=== PATIENT | male | born 1950 | race Hispanic/Latino ===

== ENCOUNTER → 2022-04-30 | Emergency (ER) | payer MEDICARE, MEDICAID ==
[~2022-04-30] MED LIST: QUEtiapine 100 MG TAB PO SCH
[2022-04-30 19:55] LABS: Bilirubin Neg (Negative); Blood, Urine Negative (Negative); Clarity Slightly Cloudy (Clear); Glucose, Urine (Dipstick) Normal (Negative); Ketone, Urine Negative (Negative); Leukocyte 100 (Negative); Nitrite Negative (Negative); Protein, Urine (Dipstick) Negative (Neg-Trace); Specific Gravity, Urine 1.015 (1.005-1.030); Urobilinogen Normal mg/dL (Less than 2)
[2022-04-30 20:03] LABS: Amphetamine Not Detected (NotDetected); Bacteria/HPF 1+ HPF (None Seen); Barbiturates Screen Not Detected (NotDetected); Benzodiazepine Screen Not Detected (NotDetected); Cocaine Metabolite Screen Not Detected (NotDetected); Methadone Not Detected (NotDetected); Methamphetamine Not Detected (NotDetected); Opiate Screen Not Detected (NotDetected); Oxycodone Screen Not Detected (NotDetected); Phencyclidine (PCP) Not Detected (NotDetected); RBC/HPF None Seen HPF (0-3); Squamous Epithelial None Seen HPF (0-3); THC/Cannabinoid Screen Not Detected (NotDetected); Tricyclic Screen Detected (NotDetected); WBC/HPF 0-3 HPF (0-3)
[2022-04-30 20:21] LABS: #Eosinphils 0.2 10x3/uL (0.0-0.5); #Monocytes 0.7 10x3/uL (0.0-1.1); #Neutrophils 3.5 10x3/uL (1.5-8.4); %Basophils 0.5 % (0.0-2.0); %Eosinophils 2.4 % (0.0-6.0); %Lymphocytes 29.1 % (18.0-47.0); %Monocytes 10.8 % (0.0-10.0); Hemoglobin 13.1 g/dL (13.5-17.5); Mean Corpuscular HGB CONC 34.5 g/dL (32.0-36.0); Mean Corpuscular Hemoglobin 30.6 pg (27.0-33.0); Mean Corpuscular Volume 88.8 fl (81.2-95.1); Mean Platelet Volume 8.9 fl (7.4-10.4); Platelet Count 313 10x3/uL (150-450); RBC Distribution Width 13.1 % (11.5-14.5); Red Blood Cell (RBC) Count 4.28 10x6/uL (4.32-5.72); White Blood Cell (WBC) Count 6.2 10x3/uL (3.5-10.5)
[2022-04-30 20:24] LABS: Acetaminophen Less than 10.0 mcg/mL (10.0-30.0); Alcohol Less than 10 mg/dL (Less than 10); CK (CPK) 75 U/L (30-200); Salicylate Less than 8.0 mg/dL (15.0-30.0)
[2022-04-30 20:26] LABS: ALT (SGPT) 11 U/L (8-55); AST (SGOT) 20 U/L (5-34); Albumin 4.2 g/dL (3.4-4.8); Alkaline Phosphatase 100 U/L (40-110); Anion Gap 15 mmol/L (10-20); BUN (Urea Nitrogen) 38 mg/dL (8.4-25.7); Bilirubin, Total 0.4 mg/dL (0.2-1.2); Calc. Creatinine Clearance 0 mL/min (70-130); Calcium 9.9 mg/dL (7.8-10.44); Carbon Dioxide 26 mmol/L (23-31); Chloride 110 mmol/L (98-107); Estimated GFR 91; Glucose 97 mg/dL (83-110); Potassium 5.4 mmol/L (3.5-5.1); Protein, Total 7.2 g/dL (5.8-8.1); Sodium 146 mmol/L (136-145)
[2022-05-01 08:21] LABS: SARS-CoV-2 NAA Rapid Test Not Detected (NotDetected)
== END ==
LOC: EDBD 19:03 → CSHERS 19:03
DX: F20.9 Schizophrenia, unspecified (principal); Z20.822 Contact with and (suspected) exposure to COVID-19
CPT/HCPCS: 70450; 80053; 80306; 80307; 82550; 85025; U0002; 36415; 81003; 81015